=== PATIENT | male | born 1955 | race Asian ===

== ENCOUNTER 2019-10-22 02:27 | Emergency (ER) | payer SELFPAY ==
[~2019-10-22] VITALS: Ht 162.6 cm; Wt 82.0 kg
[2019-10-22] MEDS ORDERED: VISCOUS LIDOCAINE 2% 15 ML UDC PO STA (03:03)
[2019-10-22] MEDS ORDERED: MAGNESIUM/ALUMINUM HYDROXIDE/SIMETHICONE 30ML UDC PO STA (03:03)
[2019-10-22] MEDS ORDERED: SODIUM CHLORIDE 0.9% 1,000 ML IV ONE (03:03)
[2019-10-22] MEDS ORDERED: FAMOTIDINE 20MG/2ML VIAL IV STA (03:03)
[2019-10-22 04:11] LABS: BASOPHILS % 0.3 % (0.0-2.0); EOSINOPHILS % 0.2 % (0.0-5.0); LYMPHOCYTES % 14.6 % (20.0-50.0); MEAN CORPUSCULAR HEMOGLOBIN 33.6 pg (28.0-32.0); MEAN CORPUSCULAR VOLUME 98.9 fL (80.0-94.0); MEAN PLATELET VOLUME 8.1 fl (7.4-10.4); MONOCYTES % 0.5 % (2.0-8.0); NEUTROPHILS % 84.4 % (40.0-76.0); PLATELET 246 x1000/uL (130-400); RED BLOOD CELL COUNT 4.75 mill/uL (4.7-6.1); RED CELL DISTRIBUTION WIDTH 12.5 % (11.6-14.6)
[2019-10-22 04:13] LABS: CLARITY URINE CLEAR (CLEAR); COLOR URINE DARK YELLOW (YELLOW); KETONES URINE TRACE (NEGATIVE); LEUKOCYTE ESTERASE URINE TRACE (NEGATIVE); NITRITE URINE NEGATIVE (NEGATIVE); OCCULT BLOOD URINE NEGATIVE (NEGATIVE); PH URINE 5.5 (4.5-8.0); PROTEIN URINE NEGATIVE (NEGATIVE); SPECIFIC GRAVITY URINE 1.033 (1.005-1.030)
[2019-10-22 04:19] LABS: CHLORIDE 106 mEq/L (98-107)
[2019-10-22 04:22] VITALS: BP 151/77
== END 2019-10-22 05:01 | disposition left against medical advice (07) ==
LOC: ER 02:27
DX: R10.9 Unspecified abdominal pain (principal); K75.0 Abscess of liver; I10 Essential (primary) hypertension; K21.9 Gastro-esophageal reflux disease without esophagitis
CPT/HCPCS: 36415; 74176; 76705; 80053; 81003; 83690; 85025; 96361; 96374; 99285; J3490; J7030